=== PATIENT | male | born 2005 | race Caucasian/White ===

== ENCOUNTER 2023-08-07 15:04 | Outpatient (CLI) | payer OTHER, SELFPAY ==
--- NOTE | 2023-08-07 15:10 | USCV_ITS ---
Paul Wilde Age: 17 Gender: M : 2005 Exam Date: 08/07/2023 15:32 Ordering Phys: Laila Hurd Technologist: Cait Kimble [place] [facility] [place]: CARDIAC MURMUR BP: / HR: 116 Rhythm: Sinus Technical Quality: Adequate MEASUREMENTS (Male / Female) Normal Values 2D ECHO LV Diastolic Diameter PLAX 4.4 cm 4.2 - 5.9 / 3.9 - 5.3 cm LV Systolic Diameter PLAX 2.4 cm LV Chamber Size 4.1 cm IVS Diastolic Thickness 0.8 cm 0.6 - 1.0 / 0.6 - 0.9 cm IVS Systolic Thickness 0.8 cm LVPW Diastolic Thickness 0.9 cm 0.6 - 1.0 / 0.6 - 0.9 cm LVPW Systolic Thickness 1.2 cm RV Chamber Size 3.7 cm LVOT Diameter 2.0 cm LV Ejection Fraction 2D Teich 77.4 % LV Ejection Fraction MOD 2C 41.7 % LV Ejection Fraction 2C AL 41.0 % LA Diameter 2.9 cm LA Width 2.6 cm LA Height 4.0 cm RA Width 3.9 cm RA Height 4.0 cm Aorta at Sinotubular Diameter 2.6 cm IVC Diameter 1.4 cm M-MODE Aortic Annulus Diameter 3.1 cm LA Ao Ratio MM 1.1 MV E Point Septal Separation 0.3 cm DOPPLER AV Peak Velocity 230.3 cm/s LVOT Peak Velocity 130.7 cm/s AV Area Cont Eq vti 1.9 cm squared AV Area Cont Eq pk 1.7 cm squared MV Area PHT 8.5 cm squared Mitral E to A Ratio 0.8 MV E' Velocity 47.5 cm/s Mitral E to MV E' Ratio 4.9 Mitral E to LV E' Lateral Ratio 4.5 Mitral E to LV E' Septal Ratio 5.4 TR Peak Velocity 209.6 cm/s TR Peak Gradient 17.6 mmHg TR Mean Velocity 148.9 cm/s TR Mean Gradient 9.6 mmHg TR Velocity Time Integral 36.7 cm TV Peak E Velocity 64.0 cm/s Right Atrial Pressure 3.0 mmHg Pulmonary Artery Systolic Pressu 20.6 mmHg PV Peak Velocity 99.0 cm/s RV Acceleration Time 0.2 s RV Ejection Time 0.3 s RV AcT/ET 0.5 FINDINGS Left Ventricle Normal left ventricular size, systolic function and wall thickness, with no regional wall motion abnormalities. Normal left ventricular wall thickness. Normal diastolic filling pattern. Left ventricular ejection fraction is estimated at 60 %. Right Ventricle The right ventricle is normal in size and function. Right Atrium The right atrium is normal in size. Left Atrium The left atrium is normal in size. Mitral Valve Structurally normal mitral valve without significant stenosis or prolapse. There is no mitral regurgitation. Aortic Valve Structurally normal aortic valve without significant sclerosis or stenosis. There is no aortic regurgitation. Tricuspid Valve Structurally normal tricuspid valve without significant stenosis or regurgitation. Pulmonary artery systolic pressure is normal. Pulmonic Valve Structurally normal pulmonic valve without significant stenosis. There is no pulmonic regurgitation. Pericardium Normal pericardium without effusion. Aorta Normal ascending aorta dimension. IVC The inferior vena cava appears normal. CONCLUSIONS Normal transthoracic echocardiogram. There are no prior echocardiogram studies to compare. Dr. Yang Curry MD (Electronically Signed) Final Date: 08 August 2023 09:33 S
== END 2023-08-07 15:05 | disposition home or self-care (01) ==
PROVIDERS: Visit Provider Nurse Practitioner Family
DX: R01.1 Cardiac murmur, unspecified (principal)
CPT/HCPCS: 93306

== ENCOUNTER 2024-11-03 18:26 | Emergency (ER) | payer OTHER, SELFPAY ==
[2024-11-03 18:34] VITALS: BP 159/79; PULSE 94; TEMP 36.9; O2SAT 100
--- NOTE | 2024-11-03 19:13 | W.ED.GENADLT ---
HPI - General Adult General: Chief complaint: Airway/Esophagus Foreign Body Stated complaint: Throat hurts when He Eats Or Drinks Time Seen by Provider: 11/03/24 19:12 Source: patient and family Mode of arrival: ambulatory Limitations: no limitations History of Present Illness: Patient is a nice 19-year-old male who presents to ED today with a complaint of painful mouth and odynophagia. Patient states he was seen at [facility] a few days ago and had strep testing performed. Significant other states the test came back twice as error read . He was treated prophylactically with amoxicillin. Patient states he has been taking this without any relief. He feels like he is swallowing golf balls. He states he is able to swallow liquids and soft foods and has been able to swallow his pills but it is incredibly painful. He is not having any difficulty breathing. He has not had any drooling or difficulty controlling his secretions. He is not having any dental pain. He has not noticed any swelling to his face or neck. Onset (ago): day(s) Location: mouth (throat) Severity: severe Pain Consistency: constant Relieving factors: none Exacerbating factors: other (swallowing) Associated symptoms: Deny chest pain, dyspnea, headache(s), nausea, rash or vomiting Treatments prior to arrival: other (abx from [facility]) Related Data Previous Rx's Medication Instructions Recorded acyclovir 400 mg tablet 400 mg PO Q8H #30 tabs 11/03/24 hydrocodone 5 mg-acetaminophen 325 1 tab PO Q6H PRN pain #14 tabs 11/03/24 mg tablet lidocaine HCl 2 % mucosal solution 15 ml PO QID #100 mL 11/03/24 (Lidocaine Viscous) Allergies Allergy/AdvReac Type Severity Reaction Status Date / Time No Known Allergies Allergy Verified 11/03/24 18:37 Review of Systems Const: Reports: fever(s) (subjective); Denies: body aches Eyes: Denies: change in vision, blurry vision, photophobia, eye discomfort, eye discharge, floaters or seeing flashes ENMT: Reports: throat pain, odynophagia, mouth pain and oral sores; Denies: uvular edema, enlarged tonsils, swelling of lips/tongue, ear or mastoid pain, nasal discharge, nasal congestion or sinus pain Card: Denies: chest pain Resp: Denies: dyspnea GI: Reports: dysphagia; Denies: abdominal pain, nausea, vomiting, hematemesis, coffee ground emesis, heartburn or diarrhea : Denies: flank pain or dysuria Musc: Denies: neck pain, back pain, extremity pain, extremity swelling, joint pain or joint swelling Skin/Breast: Denies: rash Neuro: Denies: headache(s) or dizziness Physical Exam Const: COMMON NORMALS: no acute distress, average body habitus, patient oriented x3, no limitations, healthy appearing, alert and well nourished GENERAL APPEARANCE: cooperative ORIENTATION/CONSCIOUSNESS: Yes awake, Yes oriented to person, Yes oriented to place and Yes oriented to time HENMT: COMMON NORMALS: Normal external nose present FACE & SINUS: normal facial exam, sinuses nontender and face symmetric NOSE: Normal external nose present MOUTH: Abnormal oral and palatal mucosa present (few ulcers to buccal mucosa and hard palate; slough noted to palate) and tongue abnormal lesion (few ulcers noted to tongue); no drooling and no muffled voice TEETH & GINGIVA: Yes other (widespread gingival inflammation) THROAT: posterior oropharynx abnormal erythema and other (ulcerations); no uvular edema Eye: GENERAL EYE: appearance normal, both eyes and all related structures Neck/C-Spine: COMMON NORMALS: full ROM, no lymphadenopathy and no meningeal signs Resp: COMMON NORMALS: normal respiratory effort and clear to auscultation bilaterally AUSCULTATION: clear to auscultation bilaterally Cardio: COMMON NORMALS: regular rate and regular rhythm RATE: regular rate RHYTHM: regular rhythm Neuro: COMMON NORMALS: patient oriented x3 SENSORIUM/ORIENTATION: Yes alert, Yes oriented to person, Yes oriented to place and Yes oriented to time MENINGEAL SIGNS: Yes no meningeal signs Course Vital Signs: Vital signs: Vital Signs Temperature 98.5 F 11/03/24 18:34 Pulse Rate 101 H 11/03/24 21:00 Blood Pressure 141/86 11/03/24 21:00 Pulse Oximetry 98 11/03/24 21:00 Oxygen Delivery Me thod Room Air 11/03/24 19:47 [facility] - General Adult Medical Decision Making DDx includes HSV gingivostomatitis, HFMD, herpangina. I think given his extent of disease, gingival involvement and severe odontophagia HSV gingivostomatitis is most likely diagnosis. Will treat with antivirals. He was given GI cocktail here to swish/spit. Helped a little. Was able to drink water and ice cream. Will give him a RX of this and pain meds. Return precautions given. Medical Records I reviewed the patient's medical records. Lab Data I reviewed the patient's lab results. 11/03/24 19:40 11/03/24 19:40 Laboratory Results WBC 9.19 10^3/uL (3.29-11.43) 11/03/24 19:40 RBC 4.70 10^6/uL (3.85-5.65) 11/03/24 19:40 Hgb 14.20 g/dL (11.27-16.99) 11/03/24 19:40 Hct 41.3 % (37-53) 11/03/24 19:40 MCV 87.9 fl (82-101) 11/03/24 19:40 MCH 30.2 pg (27-33) 11/03/24 19:40 MCHC 34.4 g/dL (30-55) 11/03/24 19:40 RDW 11.4 % (12.1-15.1) L 11/03/24 19:40 Plt Count 190 10^3/cmm (157-399) 11/03/24 19:40 MPV 9.8 fL (7.4-10.4) 11/03/24 19:40 Neut % (Auto) 73.3 % 11/03/24 19:40 Lymph % (Auto) 13.3 % 11/03/24 19:40 [place] % (Auto) 12.8 % 11/03/24 19:40 Eos % (Auto) 0.1 % 11/03/24 19:40 Baso % (Auto) 0.2 % 11/03/24 19:40 Neut # (Auto) 6.73 10^3/uL (1.8-7.7) 11/03/24 19:40 Lymph # (Auto) 1.2 10^3/uL (0.8-4.8) 11/03/24 19:40 [place] # (Auto) 1.2 10^3/uL (0.2-0.9) H 11/03/24 19:40 Eos # (Auto) 0.0 10^3/uL (0.0-0.8) 11/03/24 19:40 Baso # (Auto) 0.0 10^3/uL (0.0-0.1) 11/03/24 19:40 Nucleated RBC % (auto) 0 % 11/03/24 19:40 Nucleated RBCs # 0.0 /100WBC 11/03/24 19:40 Sodium 136 mmol/L (136-145) 11/03/24 19:40 Potassium 4.3 mmol/L (3.5-5.1) 11/03/24 19:40 Chloride 98 mmol/L (98-107) 11/03/24 19:40 Carbon Dioxide 26 mmol/L (22-29) 11/03/24 19:40 Anion Gap 16.3 (5-19) 11/03/24 19:40 BUN 13 mg/dL (6-20) 11/03/24 19:40 Creatinine 0.8 mg/dL (0.7-1.2) 11/03/24 19:40 GFR Calculation 122.0 mL/min (90-130) 11/03/24 19:40 Glucose 95 mg/dL (65-115) 11/03/24 19:40 Calculated Osmolality 282 mOsm/kg (285-295) L 11/03/24 19:40 Calcium 9.2 mg/dL (8.5-10.5) 11/03/24 19:40 Total Bilirubin 0.7 mg/dL (0.15-1.2) 11/03/24 19:40 AST 21 U/L (0-40) 11/03/24 19:40 ALT 27 U/L (0-41) 11/03/24 19:40 Alkaline Phosphatase 88 U/L (40-130) 11/03/24 19:40 Total Protein 7.9 g/dL (6.6-8.7) 11/03/24 19:40 Albumin 4.3 g/dL (3.5-5.2) 11/03/24 19:40 Globulin 3.6 g/dL (1.3-4.6) 11/03/24 19:40 Urine Color Dark yellow (Yellow) A 11/03/24 20:05 Urine Appearance Clear (CLEAR) 11/03/24 20:05 Urine pH 5.5 (5-7) 11/03/24 20:05 Ur Specific [place] 1.037 (1.005-1.030) H 11/03/24 20:05 Urine Protein 2+ (Negative) A 11/03/24 20:05 Urine Glucose (UA) Negative (Normal) 11/03/24 20:05 Urine Ketones 3+ (Negative) H 11/03/24 20:05 Urine Blood Negative (Negative) 11/03/24 20:05 Urine Nitrate Negative (Negative) 11/03/24 20:05 Urine Bilirubin 1+ (Negative) H 11/03/24 20:05 Urine Urobilinogen 2.0 mg/dL (Negative) H 11/03/24 20:05 Ur Leukocyte Esterase Trace (Negative) A 11/03/24 20:05 Urine RBC 0-2 /hpf (0-2) 11/03/24 20:05 Urine WBC 0-5 /hpf (0-5) 11/03/24 20:05 Ur Squamous Epith Cells 0-5 /hpf (0-5) 11/03/24 20:05 Amorphous Sediment Not Reportable 11/03/24 20:05 Urine Bacteria None seen /hpf (NONE) 11/03/24 20:05 Hyaline Casts 0.81 /lpf 11/03/24 20:05 No radiology studies performed this visit Discharge Plan Discharge Patient Disposition: Home Clinical Impression: Herpetic gingivostomatitis Condition: Stable Prescriptions: New acyclovir 400 mg tablet 400 mg PO Q8H Qty: 30 0RF hydrocodone-acetaminophen 5-325 mg tablet 1 tab PO Q6H PRN (Reason: pain) Qty: 14 0RF lidocaine HCl [Lidocaine Viscous] 2 % solution 15 ml PO QID Qty: 100 0RF Rx Instructions: Mix with water and swish for 60 seconds, then swallow Discharge Orders: Discharge ED (Routine); Ordered 11/03/24 Ordered By: Kriss Llanes Patient Instructions: Gingivostomatitis (ED), Opioid Safety, Pain Management Activity Restrictions/Additional Instructions: As we discussed, you need to push fluids is much as possible to avoid dehydration. You need to return the emergency department for worsening pain, difficulty or inability to swallow, any difficulty breathing or controlling your secretions/saliva, high fevers, generally feeling worse or unwell, or any other concerns you may have. 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
[2024-11-03 19:28] VITALS: BP 134/84; PULSE 104; O2SAT 99
--- NOTE | 2024-11-03 19:31 | PC.NURSE ---
Patient reports that he is unable to swallow and last ate food at 2100 on 11/02/2024. Patient also reports a fever yesterday. Patient alert, with respirations unlabored.
[2024-11-03] MEDS: lidocaine 2% viscous 15 ML, aluminum-mag hydrox-simethicon 30 ML, sucralfate oral liq 1 GM PO (19:45)
[2024-11-03 19:47] VITALS: BP 134/84; PULSE 109; O2SAT 98
[2024-11-03 19:49] LABS: Basophils % 0.2 %; Eosinophils % 0.1 %; Hematocrit 41.3 % (37-53); Lymphocytes # 1.2 10^3/uL (0.8-4.8); Lymphocytes % 13.3 %; Mean Corpuscular HGB Conc 34.4 g/dL (30-55); Mean Corpuscular Hemoglobin 30.2 pg (27-33); Mean Corpuscular Volume 87.9 fl (82-101); Mean Platelet Volume 9.8 fL (7.4-10.4); Monocytes # 1.2 10^3/uL (0.2-0.9); Monocytes % 12.8 %; Neutrophils # 6.73 10^3/uL (1.8-7.7); Neutrophils % 73.3 %; Nucleated Red Blood Cells % 0 %; Platelet Count 190 10^3/cmm (157-399); Red Cell Distribution Width 11.4 % (12.1-15.1); White Blood Count 9.19 10^3/uL (3.29-11.43)
[2024-11-03 20:06] LABS: Alanine Aminotransferase 27 U/L (0-41); Albumin Level 4.3 g/dL (3.5-5.2); Alkaline Phosphatase 88 U/L (40-130); Anion Gap 16.3 (5-19); Aspartate Amino Transferase 21 U/L (0-40); Blood Urea Nitrogen 13 mg/dL (6-20); Calcium 9.2 mg/dL (8.5-10.5); Carbon Dioxide 26 mmol/L (22-29); Chloride 98 mmol/L (98-107); Globulin 3.6 g/dL (1.3-4.6); Glucose 95 mg/dL (65-115); Osmolality Calculated 282 mOsm/kg (285-295); Potassium 4.3 mmol/L (3.5-5.1); Sodium 136 mmol/L (136-145); Total Bilirubin 0.7 mg/dL (0.15-1.2); Total Protein 7.9 g/dL (6.6-8.7)
[2024-11-03 20:20] LABS: Bacteria Urine None Seen /hpf; Hyaline Casts Urine 0.81 /lpf; RBC Urine 0-2 /hpf (0-2); Squamous Epithelial Cell Urine 0-5 /hpf (0-5); WBC Urine 0-5 /hpf (0-5)
[2024-11-03 20:31] LABS: Add Urine Microscopic? YES; Bilirubin Urine 1+ (Negative); Blood Urine Negative (Negative); Glucose Urine UA Negative (Normal); Ketones Urine 3+ (Negative); Leukocyte Esterase Urine Trace (Negative); Nitrate Urine Negative (Negative); Protein Urine 2+ (Negative); Urine Color Dark Yellow (Yellow); pH Urine 5.5 (5-7)
[2024-11-03 20:32] LABS: Specific Gravity, Urine 1.037 (1.005-1.030); Urine Appearance Clear (CLEAR)
[2024-11-03 21:00] VITALS: BP 141/86; PULSE 101; O2SAT 98
[2024-11-03 21:53] VITALS: BP 135/93; PULSE 101; O2SAT 99
== END 2024-11-03 21:56 | disposition home or self-care (01) ==
PROVIDERS: Emergency Provider Physician Assistant
DX: B00.2 Herpesviral gingivostomatitis and pharyngotonsillitis (principal)
CPT/HCPCS: 36415; 80053; 81001; 85025; 99283